=== PATIENT | male | born 1940 | race African-American/Black ===

== ENCOUNTER 2022-12-02 08:17 | Outpatient (CLI) | payer OTHER ==
[~2022-12-02 08:17] MED LIST: AMLODIPINE BESY10 MG; AVAPRO300 MG; CLEOCIN HCL300 MG PO; HYDROCHLOROTHIA25 MG; INTESTINEX1 CA1 PO; INTESTINEX1 CAP PO; LOPRESSOR25 MG; MOTRIN800 MG PO; WARFARIN SODIU2.5 MG
== END 2022-12-02 08:18 | disposition home or self-care (01) ==
LOC: NUCLEAR 08:17
PROVIDERS: ATTEND Internal Medicine Cardiovascular Disease
DX: I73.9 Peripheral vascular disease, unspecified (principal); I11.9 Hypertensive heart disease without heart failure; E78.2 Mixed hyperlipidemia; E11.9 Type 2 diabetes mellitus without complications

== ENCOUNTER 2024-02-11 08:39 | Emergency (ER) | payer OTHER ==
[~2024-02-11] VITALS: Ht 170.2 cm; Wt 99.8 kg
[2024-02-11] MEDS ORDERED: 0.9 % SODIUM CHLORIDE 1,000 ML IV SCH (09:15)
[2024-02-11 09:50] LABS: HEMATOCRIT 42.6 % (39.0-48.0); HEMOGLOBIN 14.5 g/dL (13-16.00); MEAN CELL VOLUME 82.7 fL (80.0-100.00); MEAN CORPUSCULAR HEMOGLOBIN 28.2 pg (27.00-32.0); PLATELET COUNT 162 K/uL (150-450); RED BLOOD COUNT 5.15 M/uL (4.00-6.00)
[2024-02-11 10:04] LABS: CALCIUM 9.4 mg/dL (8.5-10.1); CREATININE SERUM 1.35 mg/dL (0.70-1.30); GFR 50.35; POTASSIUM 3.74 mEq/L (3.5-5.1)
[2024-02-11 10:06] LABS: C-REACTIVE PROTEIN 2.54 MG/DL (0.00-0.29)
[2024-02-11 10:08] LABS: ABG PO2 79.4 mmHg (80-100); ABG pCO2 42.5 mmHg (35-45)
[2024-02-11 10:09] LABS: BASE EXCESS 2.2 mmol/l; BICARBONATE 26.9 mmol/l (23-25); SaO2 95.6 %; Tco2 28.2 mmol/l; allen test SATISFACTORY; o2 21 %; puncture site RADIAL RIGHT
[2024-02-11] MEDS ORDERED: LEVALBUTEROL HCL 0.63 MG/3 ML SOLUTION IH ONE (13:15)
== END 2024-02-11 15:34 | disposition home or self-care (01) ==
LOC: ER 08:40
PROVIDERS: Emergency Medicine
DX: J10.1 Influenza due to other identified influenza virus with other respiratory manifestations (principal); J22 Unspecified acute lower respiratory infection; I10 Essential (primary) hypertension; I49.8 Other specified cardiac arrhythmias; Z20.822 Contact with and (suspected) exposure to COVID-19
CPT/HCPCS: 71045; 82803; 93005; 94640; 96365; 96366; 99283; J7030

== ENCOUNTER 2024-03-20 20:12 | Emergency (ER) | payer OTHER ==
[~2024-03-20] VITALS: Ht 170.2 cm; Wt 86.2 kg
[2024-03-20 22:02] LABS: HEMATOCRIT 42.3 % (39.0-48.0); HEMOGLOBIN 14.3 g/dL (13-16.00); MEAN CELL VOLUME 82.5 fL (80.0-100.00); MEAN CORPUSCULAR HEMOGLOBIN 27.8 pg (27.00-32.0); MEAN CORPUSCULAR HGB CONC 33.7 g/dl (32.0-36.0); PLATELET COUNT 162 K/uL (150-450); RED BLOOD COUNT 5.13 M/uL (4.00-6.00)
[2024-03-20 22:22] LABS: PH,URINE 5.5 (5.0-8.0); URINE APPEARANCE Clear; URINE BILIRRUBIN Negative (NEGATIVE); URINE BLOOD Small; URINE COLOR Yellow; URINE GLUCOSE Negative (NEGATIVE); URINE KETONE Trace (NEGATIVE); URINE LEUKOCYTE Negative; URINE NITRATE Negative; URINE UROBILINOGEN 0.2 E.U./dl
[2024-03-20 22:26] LABS: URINE BACTERIA 89.4 uL (0.0-1933); URINE CAST 0.45 uL (0.0-1.40); URINE EPITHELIAL CELLS 4.7 uL (0.0-38.8); URINE PROTEIN 100 (NEGATIVE); URINE RBC 4.1 uL (0.0-20.8); URINE WBC 1.8 uL (0.0-23.2)
[2024-03-20 22:30] LABS: CALCIUM 9.5 mg/dL (8.5-10.1); CREATININE SERUM 1.47 mg/dL (0.70-1.30); GFR 45.64; POTASSIUM 3.26 mEq/L (3.5-5.1)
[2024-03-20] MEDS ORDERED: CEFTRIAXONE SODIUM 1,000 MG VIAL IM STA (22:38)
[2024-03-20] MEDS ORDERED: CEFTRIAXONE SODIUM 1,000 MG VIAL ONE (22:51)
== END 2024-03-20 23:00 | disposition home or self-care (01) ==
LOC: ER 20:13
PROVIDERS: General Practice
DX: U07.1 COVID-19 (principal); R53.81 Other malaise
CPT/HCPCS: 36415; 71046; 96372; 99283; J0696

== ENCOUNTER 2024-12-26 09:53 | Emergency (ER) | payer OTHER ==
[~2024-12-26] VITALS: Ht 172.7 cm; Wt 95.3 kg
[2024-12-26] MEDS ORDERED: cloNIDine HCL 0.2 MG TABLET PO ONE (12:45)
== END 2024-12-26 14:02 | disposition home or self-care (01) ==
LOC: ER 09:53
DX: I10 Essential (primary) hypertension (principal)

== ENCOUNTER → 2025-02-03 | Emergency (ER) | payer OTHER ==
[~2025-02-03] VITALS: Ht 172.7 cm; Wt 99.8 kg
[~2025-02-03] MED LIST changes: +CARDURA1 MG; +CARVEDILOL ER40 MG; +LIPITOR20 MG; +METFORMIN HCL750 MG
[2025-02-03 11:25] LABS: COVID-19 AG NEGATIVE (NEGATIVE); INFLUENZA A AG NEGATIVE (NEGATIVE); INFLUENZA B AG NEGATIVE (NEGATIVE)
== END | disposition home or self-care (01) ==
LOC: ER 09:30
PROVIDERS: General Practice
DX: J02.9 Acute pharyngitis, unspecified (principal); Z20.822 Contact with and (suspected) exposure to COVID-19

== ENCOUNTER 2025-06-08 19:21 | Emergency (ER) | payer OTHER ==
[~2025-06-08] VITALS: Ht 170.2 cm; Wt 97.5 kg
[2025-06-08] MEDS ORDERED: PROTONIX20 MG PO (20:53)
[2025-06-08] MEDS ORDERED: CASODEX50 MG (20:53)
[2025-06-08] MEDS ORDERED: ECOTRIN81 MG (20:53)
[2025-06-08] MEDS ORDERED: DRAMAMINE LESS25 MG (20:54)
[2025-06-08] MEDS ORDERED: OXYBUTYNIN CHLO10 MG PO (20:55)
[2025-06-08] MEDS ORDERED: ISOSORBIDE DINI30 MG (20:55)
[2025-06-08] MEDS ORDERED: HORIZANT300 MG (20:56)
[2025-06-08 22:03] LABS: BASO % 0.5 % (0.1-1.2); EOS # 0.59 (0.04-0.54); EOS % 7.2 % (0.7-7.0); LYMPH # 2.92 (1.18-3.74); LYMPH % 35.8 % (19.3-53.1); MEAN PLATELET VOLUME 9.30 fl (9.4-12.4); MONO # 0.76 (0.24-0.82); MONO % 9.3 % (4.7-12.5); NEUT # 3.83 (1.56-6.13); NEUT % 47.0 % (34.0-71.1); RED CELL DISTRIBUTION WIDTH 14.3 % (11.6-14.4)
[2025-06-08 22:25] LABS: ALT/SGPT 32.0 U/L (12-78); AST/SGOT 22.0 U/L (15-37); BILIRUBIN TOTAL 0.65 mg/dL (0.3-1.2); BUN CREA RATIO 18.0 (7.0-25.0); CREATININE SERUM 1.66 mg/dL (0.70-1.30); GFR 39.57; GLOBULINA 4.6 G/DL (2.4-3.5); GLUCOSE FASTING 109.0 mg/dL (65-100); OSMOLALITY SERUM 290.0 MOSM/KG (275-295)
[2025-06-08] MEDS ORDERED: MAGNESIUM HYDROXIDE 400 MG/5 ML ML PO ONE (23:45)
[2025-06-08] MEDS ORDERED: LACTULOSE 10 G/15 ML ML PO ONE (23:45)
[2025-06-08] MEDS ORDERED: MINERAL OIL 30 ML BLIST.PACK PO ONE (23:45)
[2025-06-09 02:53] LABS: URINE APPEARANCE Clear; URINE BILIRRUBIN Negative (NEGATIVE); URINE BLOOD Negative; URINE COLOR Yellow; URINE GLUCOSE Negative (NEGATIVE); URINE KETONE Negative (NEGATIVE); URINE LEUKOCYTE Negative; URINE NITRATE Negative; URINE PROTEIN 30 (NEGATIVE); URINE UROBILINOGEN 0.2 E.U./dl
[2025-06-09 02:56] LABS: URINE BACTERIA 22.7 uL (0.0-1933); URINE RBC 5.4 uL (0.0-20.8)
[2025-06-09 03:12] LABS: URINE CAST 0.14 uL (0.0-1.40); URINE EPITHELIAL CELLS 1.3 uL (0.0-38.8); URINE WBC 1.3 uL (0.0-23.2)
[2025-06-09] MEDS ORDERED: MIRALAX510 GM PO (07:08)
[2025-06-09] MEDS ORDERED: 0.9 % SODIUM CHLORIDE 1,000 ML IV SCH (09:00)
== END 2025-06-09 08:04 ==
LOC: ER 19:22
PROVIDERS: General Practice
DX: K56.41 Fecal impaction (principal); N28.1 Cyst of kidney, acquired; N20.0 Calculus of kidney; K80.20 Calculus of gallbladder without cholecystitis without obstruction; E11.9 Type 2 diabetes mellitus without complications; Z79.84 Long term (current) use of oral hypoglycemic drugs; I10 Essential (primary) hypertension

== ENCOUNTER 2025-06-26 12:01 | Emergency (ER) | payer OTHER ==
[~2025-06-26] VITALS: Ht 170.2 cm; Wt 97.5 kg
[~2025-06-26 12:01] MED LIST changes: +CASODEX50 MG; +DRAMAMINE LESS25 MG; +ECOTRIN81 MG; +HORIZANT300 MG; +ISOSORBIDE DINI30 MG; +MIRALAX510 GM PO; +OXYBUTYNIN CHLO10 MG PO; +PROTONIX20 MG PO
[2025-06-26] MEDS ORDERED: DIATRIZOATE MEGLUMINE, SODIUM 30 ML BOTTLE PO ONE (14:45)
[2025-06-26] MEDS ORDERED: DIATRIZOATE MEGLUMINE, SODIUM 30 ML BOTTLE ONE (15:12)
[2025-06-26 15:56] LABS: BASO % 0.6 % (0.1-1.2); EOS # 0.44 (0.04-0.54); EOS % 5.3 % (0.7-7.0); LYMPH # 2.81 (1.18-3.74); LYMPH % 33.8 % (19.3-53.1); MEAN PLATELET VOLUME 10.70 fl (9.4-12.4); MONO # 0.62 (0.24-0.82); MONO % 7.5 % (4.7-12.5); NEUT # 4.37 (1.56-6.13); NEUT % 52.6 % (34.0-71.1); RED CELL DISTRIBUTION WIDTH 16.0 % (11.6-14.4)
[2025-06-26 17:25] LABS: INR 0.98
[2025-06-26] MEDS ORDERED: ONDANSETRON HCL 2 MG/ML VIAL ONE (17:39)
[2025-06-26 17:43] LABS: ALT/SGPT 27.0 U/L (12-78); AST/SGOT 21.0 U/L (15-37); BILIRUBIN TOTAL 0.75 mg/dL (0.3-1.2); BUN CREA RATIO 15.0 (7.0-25.0); CREATININE SERUM 1.49 mg/dL (0.70-1.30); GFR 44.82; GLOBULINA 4.1 G/DL (2.4-3.5); GLUCOSE FASTING 113.0 mg/dL (65-100); OSMOLALITY SERUM 286.0 MOSM/KG (275-295); PROSTATIC SPECIFIC ANTIGEN 0.605 NG/ML (0.010-4.00)
[2025-06-26] MEDS ORDERED: ONDANSETRON HCL 2 MG/ML VIAL IV ONE (17:45)
[2025-06-26 20:03] LABS: URINE APPEARANCE Clear; URINE BILIRRUBIN Negative (NEGATIVE); URINE BLOOD Negative; URINE COLOR Yellow; URINE GLUCOSE Negative (NEGATIVE); URINE KETONE Negative (NEGATIVE); URINE LEUKOCYTE Negative; URINE NITRATE Negative; URINE PROTEIN 30 (NEGATIVE); URINE UROBILINOGEN 0.2 E.U./dl
[2025-06-26 20:06] LABS: URINE BACTERIA 26.3 uL (0.0-1933); URINE EPITHELIAL CELLS 4.3 uL (0.0-38.8)
[2025-06-26 20:28] LABS: URINE CAST 0.43 uL (0.0-1.40); URINE RBC 0.8 uL (0.0-20.8); URINE WBC 1.5 uL (0.0-23.2)
[2025-06-26] MEDS ORDERED: MINERAL OIL 30 ML BLIST.PACK PO ONE (21:45)
[2025-06-26] MEDS ORDERED: LACTULOSE 20 G/30 ML BLIST.PACK PO ONE (21:45)
[2025-06-26] MEDS ORDERED: MAGNESIUM HYDROXIDE 400 MG/5 ML ML PO ONE (21:45)
[2025-06-26] MEDS ORDERED: MINERAL OIL 30 ML BLIST.PACK ONE (22:21)
[2025-06-26] MEDS ORDERED: LACTULOSE 20 G/30 ML BLIST.PACK ONE (22:21)
[2025-06-26] MEDS ORDERED: MAGNESIUM HYDROXIDE 30 ML BLIST.PACK PO ONE (22:21)
== END 2025-06-27 01:05 ==
LOC: ER 12:02
PROVIDERS: Emergency Medicine; General Practice
DX: K59.09 Other constipation (principal); R10.9 Unspecified abdominal pain; I10 Essential (primary) hypertension; E11.9 Type 2 diabetes mellitus without complications; Z79.84 Long term (current) use of oral hypoglycemic drugs
CPT/HCPCS: 36415; 74177; 93005; 96365; 99284; J2405; Q9965

== ENCOUNTER 2025-06-30 10:21 | Emergency (ER) | payer OTHER ==
[~2025-06-30] VITALS: Ht 170.2 cm; Wt 97.5 kg
[2025-06-30] MEDS ORDERED: MEDI-MECLIZINE25 MG (11:12)
[2025-06-30] MEDS ORDERED: LACTULOSE 10 G/15 ML ML PO STA (11:44)
[2025-06-30] MEDS ORDERED: MINERAL OIL 30 ML BLIST.PACK PO STA (11:44)
[2025-06-30] MEDS ORDERED: MAG HYDROX/ALUMINUM HYD/SIMETH 30 ML BLIST.PACK PO STA (11:45)
[2025-06-30] MEDS ORDERED: MINERAL OIL 30 ML BLIST.PACK ONE (11:54)
[2025-06-30] MEDS ORDERED: LACTULOSE 20 G/30 ML BLIST.PACK ONE (11:54)
[2025-06-30] MEDS ORDERED: MAG HYDROX/ALUMINUM HYD/SIMETH 30 ML BLIST.PACK PO ONE (11:54)
[2025-06-30] MEDS ORDERED: GLYCERIN 2.1 GM SUPP.RECT RECTAL STA (17:38)
[2025-06-30] MEDS ORDERED: GLYCERIN 2.1 GM SUPP.RECT RECTAL ONE (19:40)
[2025-06-30] MEDS ORDERED: NA PHOS,M-B/NA PHOS,DI-BA 1 BOTTLE ENEMA RECTAL STA (23:07)
[2025-07-01] MEDS ORDERED: LACTULOSE 10 G/15 ML ML PO STA (05:24)
[2025-07-01] MEDS ORDERED: PIPERACILLIN/TAZOBACTAM SODIUM 3.375 GM VIAL IV SCH (07:56)
[2025-07-01] MEDS ORDERED: LABETALOL HCL 200 MG/40 ML VIAL IV ONE (08:00)
[2025-07-01] MEDS ORDERED: 0.9 % SODIUM CHLORIDE 1,000 ML IV ONE (08:00)
[2025-07-01] MEDS ORDERED: NIFEDIPINE 10 MG CAPSULE PO ONE (08:00)
[2025-07-01] MEDS ORDERED: PANTOPRAZOLE SODIUM 40 MG/VIAL VIAL IV SCH (09:00)
[2025-07-01 09:24] LABS: BASO % 0.6 % (0.1-1.2); EOS # 0.40 (0.04-0.54); EOS % 4.7 % (0.7-7.0); LYMPH # 2.46 (1.18-3.74); LYMPH % 28.7 % (19.3-53.1); MEAN PLATELET VOLUME 10.00 fl (9.4-12.4); MONO # 0.59 (0.24-0.82); MONO % 6.9 % (4.7-12.5); NEUT # 5.05 (1.56-6.13); NEUT % 59.0 % (34.0-71.1); RED CELL DISTRIBUTION WIDTH 13.6 % (11.6-14.4)
[2025-07-01 09:28] LABS: ALT/SGPT 27.0 U/L (12-78); AST/SGOT 22.0 U/L (15-37); BILIRUBIN TOTAL 0.79 mg/dL (0.3-1.2); BUN CREA RATIO 14.0 (7.0-25.0); CREATININE SERUM 1.41 mg/dL (0.70-1.30); GFR 47.77; GLOBULINA 4.5 G/DL (2.4-3.5); GLUCOSE FASTING 118.0 mg/dL (65-100); OSMOLALITY SERUM 285.0 MOSM/KG (275-295)
[2025-07-01 09:30] LABS: INR 0.99
[2025-07-01] MEDS ORDERED: DIATRIZOATE MEGLUMINE, SODIUM 30 ML BOTTLE PO ONE (10:00)
[2025-07-01] MEDS ORDERED: CLINDAMYCIN PHOSPHATE 150 MG/ML (300mg) IM STA (15:40)
[2025-07-01] MEDS ORDERED: DEXAMETHASONE SODIUM PHOSPHATE 4 MG/ML VIAL IM STA (15:41)
[2025-07-01] MEDS ORDERED: ENALAPRILAT DIHYDRATE 2.5 MG/2 ML VIAL IV STA (15:52)
[2025-07-01] MEDS ORDERED: MINERAL OIL 133 ML ENEMA RECTAL STA (15:59)
[2025-07-01] MEDS ORDERED: MINERAL OIL 30 ML BLIST.PACK PO STA (17:50)
[2025-07-01] MEDS ORDERED: LACTULOSE 20 G/30 ML BLIST.PACK PO STA (17:50)
[2025-07-01] MEDS ORDERED: MAGNESIUM HYDROXIDE 30 ML BLIST.PACK PO STA (17:51)
[2025-07-01 17:52] LABS: URINE APPEARANCE Clear; URINE BILIRRUBIN Negative (NEGATIVE); URINE BLOOD Negative; URINE COLOR Yellow; URINE GLUCOSE Negative (NEGATIVE); URINE KETONE Negative (NEGATIVE); URINE LEUKOCYTE Negative; URINE NITRATE Negative; URINE PROTEIN 30 (NEGATIVE); URINE UROBILINOGEN 0.2 E.U./dl
[2025-07-01] MEDS ORDERED: ENALAPRILAT DIHYDRATE 1.25 MG/ML VIAL IV STA (17:57)
[2025-07-01 18:00] LABS: URINE BACTERIA 27.5 uL (0.0-1933); URINE EPITHELIAL CELLS 4.4 uL (0.0-38.8); URINE RBC 8.7 uL (0.0-20.8)
[2025-07-01 18:17] LABS: URINE CAST 0.00 uL (0.0-1.40); URINE WBC 0.9 uL (0.0-23.2)
== END 2025-07-01 19:42 | disposition home or self-care (01) ==
LOC: ER 10:22
PROVIDERS: General Practice
DX: K56.41 Fecal impaction (principal); I10 Essential (primary) hypertension; E11.9 Type 2 diabetes mellitus without complications; Z79.84 Long term (current) use of oral hypoglycemic drugs
CPT/HCPCS: 71045; 74176; 74240; 93041; 96365; 96366; 96372; 99284; J2543; J3490 ×2; J7030